=== PATIENT | male | born 1970 | race Caucasian/White ===

== ENCOUNTER 2016-11-08 15:10 | Emergency (ER) | payer BC, OTHER ==
--- NOTE | 2016-11-08 16:22 | RAD ---
INDICATION: Left ankle injury. History of old avulsion injury COMPARISON: July 15, 2016 TECHNIQUE: AP, lateral, and oblique views were obtained. FINDINGS: No acute bony changes are. Mild irregularities about the medial and lateral malleoli likely related to remote injuries. There is mild tibiotalar osteoarthritis. There are heel spurs. There is calcification of the Achilles tendon insertion There is no significant soft tissue swelling.. IMPRESSION: DEGENERATIVE AND OR POST TRAUMATIC CHANGES DESCRIBED ABOVE. ACHILLES TENDINOPATHY
--- NOTE | 2016-11-08 16:24 | RAD ---
INDICATION: Foot pain COMPARISON: None TECHNIQUE: AP, lateral, and oblique views were obtained. FINDINGS: There are no acute bony findings. There are heel spurs with findings of Achilles tendinopathy there are mild hammertoe deformities. IMPRESSION: DEGENERATIVE CHANGES DESCRIBED. ACHILLES TENDINOPATHY.
[2016-11-08 17:29] VITALS: BP 130/71
--- NOTE | 2016-11-10 06:09 | ED ---
Mel Day Edward, scribed for Bienvenido Dawkins MD on 11/08/16 at 1538 . Lower Extremity - HPI Summary HPI Summary: 46 y/o male presents to ED c/o sudden onset L heel pain s/p L heel injury around 1 hour ago. The pain is described as someone "hitting his heel with a bat " located at the L achilles. The pain radiates up the back of the calf when the pt bends his foot down. The pain is aggravated with movement of the foot. The pt was playing softball and was accelerating to picker tender a ground ball. PMHx calcified insertional achilles tendinitis. - History of Current Complaint Chief Complaint: EDExtremityLower Stated Complaint: LT ACHILLES TENDON PAIN Time Seen by Provider: 11/08/16 15:33 Hx Obtained From: Patient Mechanism Of Injury: Other - Injured while playing softball Onset of Pain: Immediate Onset/Duration: Still Present Severity Initially: Severe Severity Currently: Mild Pain Intensity: 2 Pain Scale Used: 0-10 Numeric Timing: Constant Aggravating Factor(s): Movement - of L foot - Allergies/Home Medications Allergies/Adverse Reactions: Allergies Allergy/AdvReac Type Severity Reaction Status Date / Time Amlodipine Allergy Rash Verified 11/08/16 15:23 PMH/Surg Hx/FS Hx/Imm Hx Previously Healthy: No Cardiovascular History: Reports: Hx Hypertension Musculoskeletal History: Reports: Other Musculoskeletal History - calcified insertional achilles tendinitis - Surgical History Surgery Procedure, Year, and Place: Neck infusion surgery Infectious Disease History: No Infectious Disease History: Denies: Traveled Outside the [place] in Last 30 Days - Social History Alcohol Use: Rare Hx Substance Use: No Substance Use Type: Reports: None Hx Tobacco Use: No Smoking Status (MU): Never Smoked Tobacco Review of Systems Constitutional: Negative Eyes: Negative ENT: Negative Cardiovascular: Negative Respiratory: Negative Gastrointestinal: Negative Genitourinary: Negative Positive: Arthralgia - L heel pain Skin: Negative Neurological: Negative Psychological: Normal All Other Systems Reviewed And Are Negative: Yes Physical Exam - Summary Physical Exam Summary: VITAL SIGNS: Reviewed. GENERAL: ~Patient is a well-developed and nourished male who is lying comfortable in the stretcher. ~Patient is not in any acute respiratory distress. HEAD AND FACE: No signs of trauma. ~No ecchymosis, hematomas or skull depressions. No sinus tenderness. EYES: PERRLA, EOMI x 2, No injected conjunctiva, no nystagmus. EARS: Hearing grossly intact. Ear canals and tympanic membranes are within normal limits. MOUTH: Oropharynx within normal limits. NECK: Supple, trachea is midline, no adenopathy, no JVD, no carotid bruit, no c- spine tenderness, neck with full ROM. CHEST: Symmetric, no tenderness at palpation LUNGS: Clear to auscultation bilaterally. No wheezing or crackles. CVS: Regular rate and rhythm, S1 and S2 present, no murmurs or gallops appreciated. ABDOMEN: Soft, non-tender. No signs of distention. No rebound no guarding, and no masses palpated. Bowel sounds are normal. EXTREMITIES: L foot - good pulses, decreased ROM, tenderness @ achilles tendon area. NEURO: Alert and oriented x 3. No acute neurological deficits. Speech is normal and follows commands. SKIN: Dry and warm Triage Information Reviewed: Yes Vital Signs On Initial Exam: Initial Vitals Temp Pulse Resp BP Pulse Ox 98.7 F 93 16 132/77 96 11/08/16 15:18 11/08/16 15:18 11/08/16 15:18 11/08/16 15:18 11/08/16 15:18 Vital Signs Reviewed: Yes - Tariq Coma Scale Coma Scale Total: 15 Procedures - Splinting Location: L foot and ankle Hand-Made Type: fiberglass Splint: posterior walking Pre-Proc Neuro Vasc Exam: normal Post-Proc Neuro Vasc Exam: normal Diagnostics - Vital Signs Vital Signs Temp Pulse Resp BP Pulse Ox 11/08/16 15:23 93 96 11/08/16 15:21 132/77 11/08/16 15:18 98.7 F 93 16 132/77 96 - Laboratory Lab Statement: Any lab studies that have been ordered have been reviewed, and results considered in the medical decision making process. - Radiology FOOT XR Xray Interpretation: Positive (See Comments) - DEGENERATIVE CHANGES DESCRIBED. ACHILLES TENDINOPATHY. Radiology Interpretation Completed By: Radiologist ANKLE XR Xray Interpretation: Positive (See Comments) - DEGENERATIVE AND OR POST TRAUMATIC CHANGES DESCRIBED ABOVE. ACHILLES TENDINOPATHY Radiology Interpretation Completed By: Radiologist Lower Extremity Course/Dx - Course Assessment/Plan: 46 y/o male presents to ED c/o sudden onset L heel pain s/p L heel injury around 1 hour ago. The pain is described as someone "hitting his heel with a bat" located at the L achilles. The pain radiates up the back of the calf when the pt bends his foot down. The pain is aggravated with movement of the foot. The pt was playing softball and was accelerating to picker tender a ground ball. PMHx calcified insertional achilles tendinitis. FOOT XR SHOWS DEGENERATIVE CHANGES DESCRIBED. ACHILLES TENDINOPATHY. ANKLE XR SHOWS DEGENERATIVE AND OR POST TRAUMATIC CHANGES DESCRIBED ABOVE. ACHILLES TENDINOPATHY. Talked to Dr. Engel to request either a CT or US to r/o Achilles tendon rupture. Dr. Engel reports we dont offer US for small parts on the weekend and that a CT would not be helpful to r/o an Achilles tendon rupture. I decided to place a posterior splint on the pts foot. The pt was given crutches and instructed to f/u with Dr. Pinto. Pt declined crutches, says he has a pair at home. The pt is hemodynamically stable and A&Ox3. - Diagnoses Provider Diagnoses: Ankle pain, Foot pain, rule out achilles tendon rupture Discharge - Discharge Plan Condition: Stable Disposition: HOME Patient Education Materials: Arthralgia (ED) Referrals: Fredrick Pinto MD [Medical Doctor] - 3 Days (PLEASE F/U IN 2-3 DAYS) The documentation as recorded by the Mel fry Edward accurately reflects the service I personally performed and the decisions made by me, Bienvenido Dawkins MD.
== END 2016-11-08 17:30 | disposition home or self-care (01) ==
LOC: ED 15:10
DX: M25.572 Pain in left ankle and joints of left foot (principal); M79.672 Pain in left foot; I10 Essential (primary) hypertension; M76.62 Achilles tendinitis, left leg
CPT/HCPCS: 99282

== ENCOUNTER 2016-11-13 06:07 | Day surgery (SDC) | payer BC ==
[~2016-11-13 06:07] MED LIST: Buffered Lidocaine 0.9% SYRIN* 5 ML/SYR SYRINGE INTRADERM ONE; Famotidine IV* 10 MG/ML 2 ML (20 mg) IV ONE; Morphine INJ* 2 MG/ML 1 ML CARPUJECT IV PRN; PROCHLORPERAZINE INJ 5 MG/ML 2 ML VIAL IV PRN; fentaNYL* 50 MCG/ML 2 ML VIAL (100 MCG VIAL) IV PRN; oxyCODONE/Acetamin 5/325 MG* TAB PO PRN
[2016-11-13] MEDS ORDERED: Buffered Lidocaine 0.9% SYRIN* 5 ML/SYR SYRINGE ONE (06:32)
[2016-11-13] MEDS ORDERED: Famotidine IV* 10 MG/ML 2 ML (20 mg) ONE (06:32)
[2016-11-13] MEDS ORDERED: ceFAZolin 2 GM PREMIX (*) 50 ML IVPB ONE (06:32)
[2016-11-13] MEDS ORDERED: ceFAZolin 1 GM ADVAN(*) 1 GM ADDV.VIAL IVPB ONE ×2 (06:32→10:48)
[2016-11-13] MEDS ORDERED: KETAMINE HCL* 50 MG/ML 10 ML VIAL ONE (07:06)
[2016-11-13] MEDS ORDERED: Atracurium* 10 MG/ML 10 ML VIAL ONE (07:06)
[2016-11-13] MEDS ORDERED: fentaNYL* 50 MCG/ML 5 ML VIAL (250 MCG VIAL) ONE (07:06)
[2016-11-13] MEDS ORDERED: Midazolam* 1 MG/ML 10 ML VIAL (10 MG) ONE (07:06)
[2016-11-13] MEDS ORDERED: Ondansetron INJ* 2 MG/ML VIAL ONE (08:39)
[2016-11-13] MEDS ORDERED: Bupivacaine 0.25% SDV* 30 ML ONE (08:39)
[2016-11-13] MEDS ORDERED: Lidocaine 2% PF * 5 ML VIAL ONE (08:39)
[2016-11-13] MEDS ORDERED: Dexamethasone IV* 4 MG/ML 1 ML (4 MG) ONE (08:39)
[2016-11-13] MEDS ORDERED: Propofol* 10 MG/ML 20 ML BTL IV PUSH ONE (08:39)
[2016-11-13] MEDS ORDERED: Succinylcholine* 20 MG/ML 10 ML VIAL ONE (08:40)
[2016-11-13] MEDS ORDERED: Labetalol IV* 5 MG/ML 20 ML VIAL ONE (09:59)
[2016-11-13] MEDS ORDERED: oxyCODONE/Acetamin 5/325 MG* TAB ONE (11:12)
[2016-11-13 11:15] VITALS: BP 129/80
--- NOTE | 2016-11-14 02:02 | OP ---
DATE OF OPERATION: 11/13/16 [facility] DATE OF : 68 SURGEON: Ubaldo Upton MD. PARADICHLOROBENZENE MACHINE OPERATOR: KB Leonard. ANESTHESIOLOGIST: Mook Deal MD ANESTHESIA: General endotracheal anesthesia with a regional nerve block. PRE-OP DIAGNOSES: 1. Left Achilles tendon rupture. 2. Left insertional Achilles tendinopathy with an insertional spur and Kulwinder' s lesion. 3. Left Achilles contracture. POST-OP DIAGNOSES: 1. Left Achilles tendon rupture. 2. Left insertional Achilles tendinopathy with an insertional spur and Kulwinder' s lesion. 3. Left Achilles contracture. OPERATIVE PROCEDURE: 1. Left Achilles tendon repair. 2. Left calcaneal exostectomy with removal of Kulwinder's lesion. 3. Left flexor hallucis longus tendon transfer. 4. Left gastrocnemius recession (Royal procedure). IMPLANTS: 1. Arthrex SpeedBridge for Achilles repair. 2. Arthrex 8mm Bio-Tenodesis screw for the FHL tendon transfer. ESTIMATED BLOOD LOSS: Minimal. TOURNIQUET TIME: Less then 2 hours at 275 mmHg. SPECIMENS: None. COMPLICATIONS: None. STATUS: Stable from the operating room to the recovery room and then home. 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 This has been symptomatic for 4 to 5 years. This past weekend in a softball game, he was running to get a ball and ruptured his left Achilles off its insertion on the calcaneus. This was confirmed on physical exam as well as with MRI. Given that this was an insertional Achilles rupture, surgery was recommended to him after discussing all of his options including nonoperative management. The nature and the risks of surgery were reviewed in careful detail in the office as well as in the preoperative holding area. Our discussions regarding the risk of surgery included, but were not limited to infection, wound problems, nerve injury, neuroma, RSD, persistent symptoms, weakness, blood clots, re-rupture, persistent pain, need for further surgery and even the remote chance of a catastrophic complication including loss of limb. DESCRIPTION OF PROCEDURE: The patient was seen in the preoperative holding area and informed consent was obtained. The appropriate extremity was marked. The patient was then brought to the operating room and anesthesia was induced. All bony prominences were padded with great care. A well-padded thigh tourniquet was applied. DVT prophylaxis in the form of a compression boot was put on the nonsurgical extremity. He was placed in the prone position and again all bony prominences were carefully padded. A pre-scrub with a chlorhexidine based scrub was used and then a ChloraPrep scrub was performed under sterile conditions and the patient was draped in the standard sterile fashion. Surgical safety pause was then conducted in which we confirmed the appropriate patient, extremity, planned procedure, availability of equipment, indication, and administration of prophylactic antibiotics. We began with Esmarch exsanguination and inflated the tourniquet to 275 mmHg. We made an approximately 8 cm incision overlying the posterior aspect of the Achilles. Skin edges were carefully protected throughout the procedure. The incision was made slightly medial to midline to avoid sural nerve. We carried the dissection down through the soft tissues and carefully exposed the paratenon layer for later repair. We then sharply came through this to expose the Achilles tendon including its insertion on to the calcaneus. There was a complete rupture of the Achilles tendon at the insertion as well as large insertional bone spurs. We inspected the Achilles tendon proximally and then used a malleable retractor passed deep to the paratenon to mobilize the proximal stump. The distal aspect of the Achilles tendon was debrided. Calcification as well as degenerative tissue was removed. The distal end of his Achilles was quite degenerative as expected given his long history of Achilles tendinopathy. Because of this, the decision was made to perform a flexor hallucis longus tendon transfer. The calcaneal insertion site was then exposed, some residual tendon insertion was mobilized medially and laterally and used later to augment the repair. This exposed the large bone spurs as well as the Kulwinder's lesion. At this point, we utilized a combination of a sagittal saw, rongeur, and scalpel to remove the Kulwinder's lesion as well as the large bone spurs. Fluoroscopic imaging was used to demonstrate adequate removal of the calcaneal bony prominences. We carefully felt the site through the skin to ensure that there were no prominences medially or laterally. We then proceeded to the flexor hallucis longus tendon transfer. The posteromedial neurovascular bundle was carefully protected throughout this portion of the procedure. We dissected into the deep posterior compartment in order to expose the FHL muscle belly. The FHL was then confirmed by ranging the hallux. We then traced the FHL tendon distally around the posteromedial aspect of the ankle. A Hitesh was placed around the FHL tendon and then the tendon was transected as distally as possible with the ankle and hallux plantar flexed. At this point, the tendon was tagged using a FiberLoop suture. The tendon was sized to 7.5 mm. We then passed a Beath pin through the calcaneus, confirming the position fluoroscopically. This was overdrilled with an 8 mm drill and then passed the tendon into the calcaneus, pulled tension on the FHL tendon with the ankle plantarflexed to match the contralateral extremity, which had been assessed prior prepping and draping. We then placed an 8-mm Bio- Tenodesis screw. This had excellent purchase and held the tendon transfer appropriately tensioned. We then turned our attention back to the Achilles. There was quite a bit of tension on the Achilles when bringing it down to its calcaneal insertion, so the decision was made to do a gastrocnemius recession. A 4-cm incision was then made over the medial calf. I dissected down to the crural fascia and this was incised sharply. The gastrocnemius fascia was found at the level just distal to the musculotendinous junction. This was dissected out and the sural nerve was protected throughout. The gastrocnemius fascia was then sharply incised with the scalpel. Afterwards tension pulled on the distal Achilles, we were able to gain about 2 cm more of length. This allowed us to repair the Achilles down to the calcaneal insertion. Prior to starting the Achilles repair, the deep wound was thoroughly irrigated. The sites for the SpeedBridge were planned out. We then drilled all 4 holes for the SpeedBridge and these were tapped. The proximal 2 anchors were placed and the FiberTape sutures were passed through the substance of the Achilles both medially and laterally. We placed a stopping stitch distal to each of these with a #1 Vicryl, so that the FiberTape were not pulled through the tendon substance. The Achilles was brought down to the calcaneus insertion and anchors were then placed into its distal 2 SpeedBridge holes with appropriate tension. This brought 2 vertical ends of tape as well as 2 crisscrossed limbs of tape to give a good repair of the Achilles with a broad attachment on to the calcaneus. This was a nice repair and the Achilles held tight with an intact London's test. The repair was then augmented by utilizing #1 Vicryl suture, so the remnant fibers from the calcaneus tuberosity into the repaired Achilles. This helped to reinforce the repair. At this point, the tourniquet was deflated. There was no significant bleeding encountered. We closed meticulously using 2-0 Vicryl for the paratenon layer, 3-0 Monocryl for the deep dermal layer, and 3-0 nylon for the skin. At the incision for the Royal , 3-0 Monocryl and 3-0 nylon were also used. A sterile dressing was then applied and we placed a splint with the ankle in resting equinus. The patient was then turned into the supine position and awakened from anesthesia. There were no complications. All needle and sponge counts were correct at the end of the case. ATTESTATION: I attest that I was present, scrubbed, and performed the critical portions of the procedure myself. I also attest that Jayne Tanner's assistance was necessary. POSTOPERATIVE PLAN: Pino will remain nonweightbearing for an anticipated duration of 6 weeks. He will follow up in 2 weeks, at which time I will likely remove his sutures and apply Steri-Strips. At that point, I will also transition him into a tall Aircast boot with wedges and over the next month, we will slowly remove the wedges while he is nonweightbearing. While in the boot, we will start gentle active range of motion to neutral only. [id number]/[facility] #: [id number] LEO
--- NOTE | 2016-11-14 14:23 | RAD ---
INDICATION: Left ankle Achilles tendon tear COMPARISONS: MRI dated November 12, 2016 TECHNIQUE: Fluoroscopy was provided for a surgical procedure. Total fluoroscopy time is: 3.9 seconds FINDINGS: Spot images are submitted of the calcaneus. IMPRESSION: FLUOROSCOPY WAS PROVIDED FOR A SURGICAL PROCEDURE CPT II Codes: 6045F
== END 2016-11-13 11:54 | disposition home or self-care (01) ==
LOC: OR 06:07
PROVIDERS: ATTEND Orthopaedic Surgery
DX: S86.012A Strain of left Achilles tendon, initial encounter (principal); M77.32 Calcaneal spur, left foot; M70.872 Other soft tissue disorders related to use, overuse and pressure, left ankle and foot; M67.02 Short Achilles tendon (acquired), left ankle; X50.0XXA Overexertion from strenuous movement or load, initial encounter; Y93.64 Activity, baseball; Y92.320 Baseball field as the place of occurrence of the external cause; E66.01 Morbid (severe) obesity due to excess calories; I10 Essential (primary) hypertension; R00.2 Palpitations; G47.33 Obstructive sleep apnea (adult) (pediatric)
CPT/HCPCS: 76000; A9270-GY; C1713; J0330; J0690; J1100; J2250; J2405; J2704; J3010

== ENCOUNTER → 2018-08-29 13:54 | Emergency (ER) | payer BC ==
[~2018-08-29 13:54] MED LIST changes: -Buffered Lidocaine 0.9% SYRIN* 5 ML/SYR SYRINGE INTRADERM ONE; -Famotidine IV* 10 MG/ML 2 ML (20 mg) IV ONE; +Fluorescein Sodium TOPICAL* 1 MG TEST STRIP OPHTHALMIC ONE; -Morphine INJ* 2 MG/ML 1 ML CARPUJECT IV PRN; -PROCHLORPERAZINE INJ 5 MG/ML 2 ML VIAL IV PRN; +Tetan/Diph/Pertus SYR(Tdap)* 0.5 ML SYR(BOOSTRIX) use SYR IM ONE; +Tetracaine 0.5% OPTH.SOL 4 ML* 1 DROP BTL BOTH EYES SCH; +Tetracaine 0.5% OPTH.SOL 4 ML* 1 DROP BTL ONE; -fentaNYL* 50 MCG/ML 2 ML VIAL (100 MCG VIAL) IV PRN; -oxyCODONE/Acetamin 5/325 MG* TAB PO PRN
[2018-08-29 17:11] VITALS: BP 133/88
--- NOTE | 2018-08-29 17:23 | ED ---
Throat Pain/Nasal Congestion - HPI Summary HPI Summary: Pt. is a 47 y.o male who presents to the ER for left eye pain. Pt. states he was mowing his grass when a tree branch struck his left eye. Pt. notes pain and redness but denies change in vision. Sxs mild in severity. No modifying factors. Unsure of last tetanus. - History of Current Complaint Chief Complaint: EDEyeProblem Time Seen by Provider: 08/29/18 15:12 Hx Obtained From: Patient - Allergies/Home Medications Allergies/Adverse Reactions: Allergies Allergy/AdvReac Type Severity Reaction Status Date / Time amlodipine AdvReac Flushing Verified 08/29/18 13:59 lisinopril AdvReac Flushing Verified 08/29/18 13:59 Home Medications: Home Medications Naproxen Sodium 440 mg PO DAILY 08/29/18 [History Confirmed 08/29/18] PMH/Surg Hx/FS Hx/Imm Hx Previously Healthy: Yes Cardiovascular History: Reports: Hx Hypertension Denies: Hx Pacemaker/ICD Respiratory History: Reports: Hx Sleep Apnea - HX OF FOR 10 YRS Musculoskeletal History: Reports: Hx Arthritis - RIGHT HIP AND KNEE, GENERALIZED , Hx Tendonitis - CALCIFIED LEFT ACHILLES TENDINITIS, Other Musculoskeletal History - [facility] 04/17, SEE NOTE BELOW Sensory History: Denies: Hx Cataracts, Hx Contacts or Glasses, Hx Glaucoma, Hx Hearing Aid Opthamlomology History: Denies: Hx Cataracts, Hx Contacts or Glasses, Hx Glaucoma Neurological History: Reports: Hx Migraine - A CHILD, NONE IN RECENT YEARS, Other Neuro Impairments/Disorders - 06/17 C 4-5, 5-6 FUSION WITH RIGHT ARM NEURO IMPAIRMENTS Psychiatric History: Denies: Hx Panic Disorder - Surgical History Surgery Procedure, Year, and Place: VASECTOMY- 1996- [facility]. FUSION C5-C6- 04/15 - [facility] [place] Hx Anesthesia Reactions: No - Immunization History Immunizations Up to Date: Yes Infectious Disease History: No Infectious Disease History: Denies: Traveled Outside the [place] in Last 30 Days - Family History Known Family History: Positive: Non-Contributory - Social History Occupation: Employed Full-time Lives: With Family Alcohol Use: Occasionally Alcohol Amount: A FEW X YR Hx Substance Use: No Substance Use Type: Reports: None Hx Tobacco Use: No Smoking Status (MU): Never Smoked Tobacco Have You Smoked in the Last Year: No Review of Systems Positive: Photophobia, Erythema Skin: Negative Neurological: Negative All Other Systems Reviewed And Are Negative: Yes Physical Exam Triage Information Reviewed: Yes Vital Signs On Initial Exam: Initial Vitals Temp Pulse Resp BP Pulse Ox 98.7 F 83 18 133/103 97 08/29/18 13:57 08/29/18 13:57 08/29/18 13:57 08/29/18 13:57 08/29/18 13:57 Vital Signs Reviewed: Yes Appearance: Positive: Well-Appearing - Pt. lying in bed with sunglasses on. In NAD. Skin: Positive: Warm, Dry Head/Face: Positive: Normal Head/Face Inspection Eyes: Positive: Normal, EOMI - without pain, JANELLE, Other: - Right eye unremarkable. Left eye is mildly injected. Anterior chamber is clear. Neck: Positive: Supple Neurological: Positive: Normal, CN Intact II-III Psychiatric: Positive: Affect/Mood Appropriate Procedures - Procedure Summary Procedure Summary: Left eye anesthetized with tetracaine and stained with fluorescein. Eye examined under wood lamp. Small area of uptake at 7 o clock. Negative leonard sign. Eyelid everted and no FB noted. Diagnostics - Vital Signs Vital Signs Temp Pulse Resp BP Pulse Ox 08/29/18 16:55 98.2 F 89 18 133/88 98 08/29/18 13:57 98.7 F 83 18 133/103 97 - Laboratory Lab Statement: Any lab studies that have been ordered have been reviewed, and results considered in the medical decision making process. EENT Course/Dx - Course Course Of Treatment: Patient presenting with a corneal abrasion to left eye. Visual acuity normal as documented. Tetanus was updated. We'll treat patient prophylactically with Cipro eye drops. Advised follow-up with ophthalmology and 1-3 days for recheck. We'll return the ER if symptoms change or worsen. Patient understands and agrees with plan. - Differential Diagnoses Differential Diagnoses: Allergic Rhinitis, Corneal Abrasion, Penetrating Injury - Diagnoses Provider Diagnoses: Corneal abrasion Discharge - Sign-Out/Discharge Documenting (check all that apply): Patient Departure Patient Received Moderate/Deep Sedation with Procedure: No - Discharge Plan Condition: Good Disposition: HOME Prescriptions: Ciprofloxacin 0.3% OPTH.ADI* [Cipro 0.3% Opth*] 2 drop LEFT EYE Q4H 10 Days #1 btl Ciprofloxacin 0.3% OPTH.ADI* [Cipro 0.3% Opth*] 2 drop LEFT EYE Q4H 10 Days #1 btl Patient Education Materials: Corneal Abrasion (ED) Referrals: Quique Gilliam MD [Primary Care Provider] - Shlomo Yoon MD [Medical Doctor] - Additional Instructions: Call Dr. Yoon's office tomorrow morning to schedule an appointment in 2-3 days Use drops as directed Tylenol or Motrin for pain as directed Return to ER if symptoms change or worsen - Billing Disposition and Condition Condition: GOOD Disposition: Home
== END | disposition home or self-care (01) ==
LOC: ED 13:54
DX: S05.02XA Injury of conjunctiva and corneal abrasion without foreign body, left eye, initial encounter (principal); W22.8XXA Striking against or struck by other objects, initial encounter; Y93.H2 Activity, gardening and landscaping; Y92.007 Garden or yard of unspecified non-institutional (private) residence as the place of occurrence of the external cause; I10 Essential (primary) hypertension; Z88.8 Allergy status to other drugs, medicaments and biological substances; Z23 Encounter for immunization
CPT/HCPCS: 90471; 90715; 99282; A9270-GY

== ENCOUNTER 2018-12-14 08:17 | Inpatient (IN) | payer BC, OTHER ==
--- NOTE | 2018-12-03 11:35 | HP ---
HISTORY AND PHYSICAL: DATE OF ADMISSION/SURGERY: 12/14/18 DATE OF OFFICE VISIT: 12/03/18 SURGEON: Gerri Kaur MD.* (DICTATED BY KB OLIVEIRA) PROCEDURE: Right total hip arthroplasty. CHIEF COMPLAINT: Right hip pain. HISTORY OF PRESENT ILLNESS: Mr. Ramon is a 48-year-old gentleman with end- stage osteoarthritis of the right hip. He has failed conservative treatment and elected to proceed with a right total hip arthroplasty. PAST MEDICAL HISTORY: 1. Sleep apnea. 2. Hypertension. 3. Mobitz type 1 AV block. PAST SURGICAL HISTORY: 1. ACDF. 2. Left Achilles repair. CURRENT MEDICATIONS: 1. Irbesartan 75 mg daily. 2. Ibuprofen as needed. ALLERGIES: AMLODIPINE and LISINOPRIL. FAMILY HISTORY: Cancer. SOCIAL HISTORY: This is a 48-year-old gentleman. He lives with his . He does not smoke or use drugs. He uses alcohol rarely. REVIEW OF SYSTEMS: A complete 14-point review of systems was reviewed with the patient and is positive for palpitation. He denies history of DVT, PE, hepatitis, HIV, or anesthesia problems. PHYSICAL EXAMINATION GENERAL: He is well developed, well nourished, in no acute distress. VITAL SIGNS: He stands 74 inches tall and weighs 337 pounds. His blood pressure is 142/98, heart rate is 76. HEENT: Normocephalic, atraumatic. NECK: Supple. No palpable lymph nodes. PULMONARY: Lungs are clear to auscultation bilaterally. CARDIO: Regular rate and rhythm. Strong S1, S2. ABDOMEN: Soft, nontender, nondistended. NEUROLOGICAL: He is alert and oriented x3. MUSCULOSKELETAL: Right Lower Extremity: The skin is intact. There are no open wounds or abrasions. He walks with an antalgic-type gait favoring his right hip. He has 70 degrees of hip flexion, he lacks 10 degrees from neutral, and 0 degrees of internal rotation. He has 30 degrees of external rotation. All reproduce groin pain. He is able to dorsiflex and plantarflex. He has 2+ dorsalis pedis pulse and intact sensation. ASSESSMENT AND PLAN: Mr. Ramon is a 48-year-old gentleman with end-stage osteoarthritis of the right hip. He has failed conservative treatment and elected to proceed with a right total hip arthroplasty. The surgery is scheduled for 12/14/[address] Kaur. The risks and benefits of the surgery were discussed with the patient today and all of his questions were answered. He will follow up with Dr. Kaur in 2 weeks after the surgery. KB OLIVEIRA [id number]/[facility] #: [id number] LEO
[~2018-12-14 08:17] MED LIST changes: +Acetaminophen IV 1GM/100ML * 1,000 MG/100 ML VIAL IVPB ONE; +Dexamethasone IV* 4 MG/ML 1 ML (4 MG) IV SLOW PU ONE; +Famotidine IV* 10 MG/ML 2 ML (20 mg) IV ONE; -Fluorescein Sodium TOPICAL* 1 MG TEST STRIP OPHTHALMIC ONE; +Gabapentin CAP(*) 300 MG PO ONE; +Lactated Ringers 1000 ML Bag* 1,000 ML IV SCH; -Tetan/Diph/Pertus SYR(Tdap)* 0.5 ML SYR(BOOSTRIX) use SYR IM ONE; -Tetracaine 0.5% OPTH.SOL 4 ML* 1 DROP BTL BOTH EYES SCH; -Tetracaine 0.5% OPTH.SOL 4 ML* 1 DROP BTL ONE; +Tranexamic Acid 1,000 MG in NS 0.9% 50 ML* (outpatient use) IV SCH; +celeCOXIB CAP* 200 MG PO ONE
[2018-12-14] MEDS ORDERED: Dexamethasone IV* 4 MG/ML 1 ML (4 MG) ONE (08:27)
[2018-12-14] MEDS ORDERED: Gabapentin CAP(*) 300 MG ONE (08:27)
[2018-12-14] MEDS ORDERED: Acetaminophen IV 1GM/100ML * 100 ML ONE (08:28)
[2018-12-14] MEDS ORDERED: ceFAZolin 2 GM in NS PREMIX(*) 2 GM/100 ML BAG IVPB ONE (08:28)
[2018-12-14] MEDS ORDERED: Famotidine IV* 10 MG/ML 2 ML (20 mg) ONE (08:28)
[2018-12-14] MEDS ORDERED: celeCOXIB CAP* 200 MG ONE (08:28)
[2018-12-14] MEDS: Buffered Lidocaine 1% SYRIN* 1 ML/SYRINGE INTRADERM ONE ×2 (09:18→15:04)
[2018-12-14] MEDS ORDERED: Propofol* 10 MG/ML 20 ML BTL ONE (09:34)
[2018-12-14] MEDS ORDERED: Midazolam* 1 MG/ML 5 ML VIAL (5 MG) ONE ×2 (09:34→10:54)
[2018-12-14] MEDS ORDERED: Ondansetron INJ* 2 MG/ML VIAL ONE (09:34)
[2018-12-14] MEDS ORDERED: KETAMINE HCL* 50 MG/ML 10 ML VIAL ONE (09:34)
[2018-12-14] MEDS ORDERED: fentaNYL* 50 MCG/ML 2 ML VIAL (100 MCG VIAL) ONE ×3 (09:35→14:20)
[2018-12-14] MEDS ORDERED: Bupivacaine 0.5% SDV PF* 30ML VIAL ONE (09:35)
[2018-12-14] MEDS ORDERED: Ropivacaine (OR use only) 2 MG/ML 10 ML ONE (09:43)
[2018-12-14] MEDS ORDERED: ROPIVACAINE 5 MG/ML 30 ML BTL (0.5%) ONE ×2 (09:43→09:51)
[2018-12-14] MEDS ORDERED: HYDROmorphone INJ1* 1 MG/ML SYRINGE IV PRN (11:42)
[2018-12-14] MEDS ORDERED: fentaNYL* 50 MCG/ML 2 ML VIAL (100 MCG VIAL) IV PRN (11:42)
[2018-12-14] MEDS ORDERED: Naloxone* 0.4 MG/ML 1 ML VIAL IV PRN (11:42)
[2018-12-14] MEDS ORDERED: DiMENhydriNATE IV* 50 MG/ML VIAL IV PUSH PRN (11:42)
[2018-12-14] MEDS ORDERED: Ondansetron INJ* 2 MG/ML VIAL IV PRN ×2 (11:42→14:16)
[2018-12-14] MEDS ORDERED: Metoprolol Tartrate IV* 1 MG/ML 5 ML VIAL ONE (12:59)
[2018-12-14] MEDS ORDERED: Ondansetron ODT TAB* 4 MG PO PRN (14:16)
[2018-12-14] MEDS ORDERED: Magnesium Hydroxide LIQ* 30 ML UDC PO PRN (14:16)
[2018-12-14] MEDS ORDERED: oxyCODONE TAB* 5 MG TAB PO PRN (14:16)
[2018-12-14] MEDS ORDERED: oxyCODONE/Acetamin 5/325 MG* TAB PO PRN (14:16)
[2018-12-14] MEDS ORDERED: Acetaminophen TAB* 325 MG PO PRN (14:16)
[2018-12-14] MEDS ORDERED: Cyclobenzaprine TAB* 10 MG PO PRN (14:16)
[2018-12-14] MEDS ORDERED: Morphine INJ* 2 MG/ML 1 ML SYRINGE (TWO MG - NEW SYRINGE VERSION) IV PRN (14:16)
[2018-12-14] MEDS ORDERED: diPHENhydraMINE IV* 50 MG/ML 1 ml VIAL (BENADRYL) IV PRN (14:16)
[2018-12-14] MEDS ORDERED: diPHENhydraMINE PO* 25 MG PO PRN (14:16)
--- NOTE | 2018-12-14 16:18 | PN ---
Progress Note - Progress Note Date of Service: 12/14/18 Note: resting comfortably in recovery; pain well controlled; able to dorsi flex/ plantar flex, 2+ DP pulse, intact sensation
--- NOTE | 2018-12-14 17:06 | OP ---
Operative Report - Blank - Operative Report Date of Operation: 12/14/18 Note: SARATH SHER 1970 Date Of Surgery: 12/14/18 Gerri Kaur MD Regional Education Coordinator: Radha QUILES did help throughout the procedure with preparation of the hip, wound retraction, manipulation of the hip, and wound closure. Anesthesiologist: Radha Bashir MD Anesthesia Type: Spinal Preoperative Diagnosis: Right severe degenerative osteoarthritis of the hip with morbid obesity Postoperative Diagnosis: As above Procedure Performed: Right Total Hip Arthroplasty with modifier for added operative time/complexity due to morbid obesity Complications: None Specimen: Femoral head and acetabular reamings sent to pathology. Hardware used: This is uncemented Silt total hip arthroplasty hardware for the femur a size 6 accolade II with 127 neck angle femoral component, for the acetabulum a size 56F trident II tritanium cluster hole shell, for the insert a size 40 F trident X3 polyethylene insert, and for the femoral head a size 40 + 0 biolox ceramic V40 femoral head. Brief history/Indication: SARATH SHER was known in clinic and had a history of severe right hip pain. He failed conservative treatment with anti- inflammatories, pain pills, intra-articular injections and physical therapy. He elected to undergo right total hip arthroplasty due to continued pain and decreased quality of life. Radiographs showed severe end stage osteoarthritis of the hip with bone on bone contact. Informed consent was obtained from the patient. He understood the risks of surgery included but were not limited to: bleeding, infection, damage to nearby structures, intraoperative fracture, nerve palsy, failure of the hardware, early loosening, stiffness or loss of motion, dislocation, leg length discrepancy, anesthesia complications, stroke, heart attack, blood clot and . He wished to proceed. Intra-Operative findings: Intraoperatively the patient was noted to have severe loss of cartilage of the acetabulum and femoral head. Description of the Procedure: SARATH SHER was identified in the preanesthesia unit. His right hip was marked as the correct operative side. Informed consent was signed and placed in the chart. The patient was taken to the operating room and placed under anesthesia without complication. A lim catheter was placed. The patient was placed on the peg board with all bony prominences well padded. The right lower extremity was prepped and draped in the usual sterile fashion. Preoperative time-out was made to correctly identify the patient, side and site. Appropriate intraoperative antibiotics were given within one hour of incision. A standard posterior incision was made and carried sharply down to the lateral fascia. A new 10 blade was used to make an incision in the fascia in line with the skin incision. A charnley retractor was placed. The piriformis and conjoined tendons were identified and elevated off the posterolateral femur using electrocautery. These were tagged with number 5 Ethibond. Next electrocautery was used to make a posterolateral capsular flap and this was tagged with number 5 Ethibonds. The hip was carefully dislocated. Lesser trochanter to the center of the femoral head was measured at 62 mm. The oscillating saw was used to make the femoral neck cut. The femoral head was carefully removed. The femur was retracted anteriorly and the acetabular retractors were placed. Long-handled knife was used to sharply remove any remaining labrum from the acetabular rim. The acetabulum was sequentially reamed up to a size 56. A bleeding subchondral bone bed was obtained. A trial liner was placed and had excellent fit and stability. A 56 F cup was placed and had excellent stability with appropriate anteversion and abduction angle. A size 40F polyethylene liner was impacted into the acetabular shell. The liner was checked for stability and was stable. Next attention was turned to preparation of the femoral canal. A canal finder was used to enter the proximal femur. The femoral canal was sequentially broached up to a size 6 femoral broach trial. A trial neck and 40 +0 trial femoral head was chosen. Lesser trochanter to center of the femoral head measurement was satisfactory. The hip was reduced and taken through a range of motion. The hip was stable in all positions with good soft tissue tension and appropriate leg lengths. The hip was dislocated and all trials were removed. The final implant chosen was a accolade II size 6. This stem was impacted into the femoral canal without difficulty. The stem was stable with appropriate anteversion. The femoral head chosen was a 40 + 0 ceramic head. The head was impacted onto the femoral neck without difficulty. The final lesser trochanter to center of the femoral head measurement was satisfactory. The hip was reduced and taken through a range of motion. The hip was stable in all positions with good soft tissue tension and appropriate leg lengths. The hip was copiously irrigated with sterile saline. The previously tagged capsule and tendons were repaired to the posterolateral femur through two trochanteric drill holes. The lateral fascia layer was closed using number 1 vicryls. The rest of the incision was closed in a layered fashion using 0 and 2-0 vicryls. The skin was closed using 3-0 monocryl suture and Dermabond. Sterile adaptic, 4x4s and paper tape was used to cover the incision. The patients anesthesia was reversed without difficulty. He was taken to the PACU in stable condition. Intended weight-bearing will be as tolerated with posterior hip precautions.
[2018-12-14] MEDS: oxyCODONE/Acetamin 5/325 MG* TAB PO PRN ×2 (17:07→22:24)
[2018-12-14] MEDS: Lactated Ringers 1000 ML Bag* 1,000 ML IV SCH (17:24)
--- NOTE | 2018-12-14 18:09 | CONS ---
CONSULTATION REPORT: DATE OF CONSULT: 12/14/18 REQUESTING PROVIDER: Dr. Kaur. REASON FOR CONSULT: General co-medical management. HISTORY OF PRESENT ILLNESS: This is a 48-year-old male with a past medical history that is significa nt for osteoarthritis, sleep apnea, hypertension, who was admitted on 12/14/18, status post a right t otal hip replacement after failing conservative outpatient therapy. The patient was seen in the PACU , was awake and alert, able to move all toes. Pain to right hip was 2/10, which was tolerable. Kade ed any chest pain or shortness of breath. Hospital Medicine was consulted for general co- medical ma brady. PAST MEDICAL HISTORY: Ascending aorta ectasia, colon polyps, osteoarthritis, sleep apnea, hypertensi on, and Mobitz type 1 AV block. PAST SURGICAL HISTORY: ACDF, left Achilles tendon repair, vasectomy and reversal. ALLERGIES: AMLODIPINE and LISINOPRIL. FAMILY HISTORY: Significant for unknown cancer. SOCIAL HISTORY: Denies any tobacco or recreational substance use. Drinks rarely. Lives with his wif e, has 2 children. REVIEW OF SYSTEMS: An 11-point system review was performed, which was positive for right hip pain. Negative for any chest pain, shortness of breath, nausea, vomiting. PHYSICAL EXAM: Vital Signs: 97.3 Fahrenheit, 75 pulse, 18 resps, 96% oxygen on room air, and 126/78 blood pressure. General: This is an obese gentleman seen resting in the stretcher, in no acute dis tress. Eyes: Conjunctivae pink and moist. EOMs intact. PERRLA. ENT: Mucous membranes moist. Or opharynx clear. Neck is supple. Cardiac: S1, S2. Heart rate regular. No murmurs, gallops, or rubs appreciated. Respiratory: Lung sounds distant due to body habitus, though clear throughout bilater ally on room air. Abdomen: Soft, nontender. Positive bowel sounds x4. : Fitzgerald draining medium clear yellow urine. Musculoskeletal: Able to perform bilateral ankle pumps and move all toes, slight knee bend. Abductor wedge in place between legs. No clubbing or cyanosis appreciated. Skin: Dressi ng to the right lateral hip is clean, dry, and intact. No other open areas appreciated. Neuro: Sen sation intact to light touch throughout. No focal deficits appreciated. Psych: Alert and oriented x4. Thought content organized. DIAGNOSTIC STUDIES/LAB DATA: No lab data during this admission. Right hip and pelvis x-ray showed immediate postoperative changes related to a right total hip arthro plasty. IMPRESSION: My impression is that this is a 48-year-old male with a past medical history significant for osteoarthritis, sleep apnea, and hypertension, who was admitted on 12/14/18 status post a right total hip replacement after failing conservative outpatient treatment. Hospitalists are consulting f or general co- medical management. PLAN: 1. Right total hip replacement. PT and OT, pain and bowel management as per Ortho. Hip precautions . Fitzgerald to be removed in a.m. Saline lock when tolerating p.o. Spoke with the patient briefly abou t pain management strategies. 2. Hypertension. Due to blood pressures in the PACU of low 100s/50s, holding irbesartan for now, th ough may resume upon discharge. 3. Sleep apnea. May use home CPAP machine. To do pulse oximeter monitoring in the overnight. 4. DVT prophylaxis: SCDs and apixaban as per Ortho. 5. Code status is full code. 6. Disposition: Admit inpatient. Condition is fair. Thank you for allowing us to participate in the care of this patient. We will follow during this adm ission. [id number]/[facility] #: [id number]
[2018-12-14] MEDS: ceFAZolin 1 GM ADVAN(*) 1 GM in NS 0.9% 50 ML* 50 ML IVPB SCH (20:15)
[2018-12-14] MEDS: Docusate CAP* 100 MG PO SCH (20:49)
[2018-12-14] MEDS: Magnesium Hydroxide LIQ* 30 ML UDC PO SCH (20:50)
[2018-12-15] MEDS: ceFAZolin 1 GM ADVAN(*) 1 GM in NS 0.9% 50 ML* 50 ML IVPB SCH ×2 (02:45→11:01)
[2018-12-15] MEDS: Lactated Ringers 1000 ML Bag* 1,000 ML IV SCH (02:47)
[2018-12-15] MEDS: oxyCODONE/Acetamin 5/325 MG* TAB PO PRN ×4 (02:48→16:29)
[2018-12-15 06:45] LABS: Hematocrit 36 % (42-52); Hemoglobin 12.4 g/dL (14.0-18.0); Mean Platelet Volume 7.8 fL (7.4-10.4); Platelet Count 243 10^3/uL (150-450)
[2018-12-15 06:56] LABS: Calcium 8.8 mg/dL (8.6-10.3); EGFR African American 133.9 (>60); EGFR Non-African American 110.7 (>60)
[2018-12-15] MEDS: Magnesium Hydroxide LIQ* 30 ML UDC PO SCH (08:24)
[2018-12-15] MEDS: Docusate CAP* 100 MG PO SCH (08:24)
[2018-12-15] MEDS ORDERED: Apixaban* 2.5 MG TAB PO SCH (09:00)
[2018-12-15] MEDS ORDERED: Vitamin THERAPEUTIC TAB PO SCH (09:00)
[2018-12-15 16:26] VITALS: BP 129/72
[2018-12-16] MEDS ORDERED: Bisacodyl SUPP* 10 MG SUPP PR PRN (14:17)
--- NOTE | 2018-12-16 15:09 | DS ---
Orthopedic Discharge Summary - Discharge Summary Date of Admission:12/14/18 Date of Discharge: 12/15/18 Date of Surgery: 12/14/18 Attending Orthopedic Provider: Dr Kaur Pre-operative Diagnosis: Right hip osteoarthritis Operative Procedure: right total hip replacement Disposition of Patient: home Condition of Patient: stable History: SARATH SHER is a 48 year old M with years of increasingly severe right hip pain. Patient has failed conservative management and has elected to undergo a right total hip replacement Hospital Course: SARATH was admitted to [facility] on 12/14/18. Patient underwent a right total hip replacement without complication followed by a brief recovery in PACU and transfer to the Short Stay Surgical Unit in stable condition. Our hospitalist service, physical therapy and occupational therapy also participated in this patients care. Post-op day 1: Patient felt well without CP, SOB, dizziness or nausea. patient was alert and in no acute distress. Dressing was clean, dry and intact. Operative extremity dorsiflexion and plantarflexion intact, sensation intact to light touch distally, DP2+. Prior to discharge: dressing was changed, incision was clean, dry and intact. Patient was deemed to be medically and orthopedically stable for discharge. Physical therapy goals were met. Home Medications Medication Instructions Recorded Confirmed Type Irbesartan 75 mg PO QAM 05/26/18 12/14/18 History Acetaminophen TAB* Tylenol TAB* 650 mg PO Q8HR PRN tab 12/15/18 Rx Apixaban* [Eliquis*] 2.5 mg PO BID #60 tab 12/15/18 Rx Docusate CAP* [Colace Cap*] 100 mg PO BID PRN #90 cap 12/15/18 Rx oxyCODONE/Acetamin 5/325 MG* 1 tab PO Q4H PRN tab MDD 10 12/15/18 Rx [Percocet 5/325 TAB*] oxyCODONE/Acetamin 5/325 MG* 2 tab PO Q4H PRN #70 tab MDD 10 12/15/18 Rx [Percocet 5/325 TAB*] Discharge Instructions following Orthopedic Surgery: Activity: * Weight Bearing as tolerated * Continue physical therapy and occupational therapy exercises as shown * Start Outpatient physical therapy Hip replacements: Continue Hip Precautions- do not cross legs or bend greater than 90 degrees/squat Wound care: * OK to shower on post-op day 3, no bathing, swimming, or submerging wound. * Use gentle soap, pat dry. Cover with gauze, KOMAL wrap or tape. Call Orthopedic office for: * Increased drainage * Redness * Increased pain * Fever Go to ER with shortness of breath or chest pain. Diet: * Regular diet * Increase fluids and fiber to prevent constipation. * Continue to use stool softeners, call office if no bowel motion within 48 hours. Medications See Home Medication List in your packet for medications that you should take after discharge. DVT Prophylaxis: Increases bleeding tendency Eliquis Dosin.5 mg, 1 tab every 12 hours x 30 days Pain Control: Percocet Dosin/325 mg 1-2 tabs by mouth every 4-6 hours as needed for pain. Maximum of 10 tabs per day. Hold for sedation, wean off as soon as pain allows Please note that Percocet contains Tylenol (acetaminophen). Maximum daily dose of Tylenol is 4000 mg from all sources. Antibiotics are required prior to any dental work. FOLLOW UP: Follow up with [Vincent] Within 10-14 days, call for appointment Please call our office with any questions or concerns ([phone]) [place] [facility] [place]
== END 2018-12-15 16:45 | disposition home or self-care (01) | DRG 301 ==
LOC: AA 08:17 → SSU 14:17
PROVIDERS: ADMIT Orthopaedic Surgery Adult Reconstructive Orthopaedic Surgery; ATTEND Orthopaedic Surgery Adult Reconstructive Orthopaedic Surgery
PROC: 0SR904A Replacement of Right Hip Joint with Ceramic on Polyethylene Synthetic Substitute, Uncemented, Open Approach (ICD-10-PCS; principal; 2018-12-14 11:00)
DX: M16.11 Unilateral primary osteoarthritis, right hip (principal); Z68.41 Body mass index [BMI] 40.0-44.9, adult; G47.33 Obstructive sleep apnea (adult) (pediatric); I10 Essential (primary) hypertension; I44.1 Atrioventricular block, second degree; I77.819 Aortic ectasia, unspecified site; E66.01 Morbid (severe) obesity due to excess calories; M54.31 Sciatica, right side; E78.5 Hyperlipidemia, unspecified; F32.9 Major depressive disorder, single episode, unspecified; Z98.1 Arthrodesis status; Z88.8 Allergy status to other drugs, medicaments and biological substances; Z28.21 Immunization not carried out because of patient refusal
CPT/HCPCS: 36415; 80048; 85014; 85018; 85049; 88304; 88311; A9270-GY; C1776; J0690; J1100; J2250; J2405; J2704; J2795; J3010; J3490

== ENCOUNTER 2020-09-21 15:46 | Inpatient (IN) ==
[2020-09-21 19:00] LABS: ABS Basophils 0.1 10^3/ul (0-0.2); ABS Eosinophils 0.1 10^3/ul (0-0.6); ABS Lymphocytes 1.2 10^3/ul (1.0-4.8); ABS Monocytes 0.9 10^3/ul (0-0.8); Hematocrit 37 % (42-52); Hemoglobin 12.3 g/dL (14.0-18.0); Lymphocyte % 12.1 %; Mean Corpuscular HGB Conc 33 g/dL (31-36); Mean Corpuscular Hemoglobin 28 pg (27-31); Mean Corpuscular Volume 85 fL (80-94); Platelet Count 231 10^3/uL (150-450); Red Blood Count 4.42 10^6 /uL (4.18-5.48); Red Cell Distribution Width 15 % (10-15); White Blood Count 10.3 10^3/uL (3.5-10.8)
[2020-09-21 19:13] LABS: Albumin 3.9 g/dL (3.2-5.2); Calcium 8.9 mg/dL (8.6-10.3); Potassium 4.9 mmol/L (3.5-5.0); Total Bilirubin 0.5 mg/dL (0.2-1.0)
[2020-09-21 19:19] LABS: Albumin/Globulin Ratio 1.2 (1-3); EGFR African American 96.8 (>60); Globulin 3.2 g/dL (2-4); Total Protein 7.1 g/dL (6.4-8.9); Troponin I 0.01 ng/mL (<0.03)
[2020-09-21 20:13] LABS: TSH Ultra Thyroid Stim Horm 4.58 mcIU/mL (0.34-5.60)
[2020-09-21] MEDS ORDERED: cefTRIAXone 2 GM ADDV.VIAL 2 GM in NS 0.9% 100 ml BAG 100 ML IVPB ONE (23:36)
[2020-09-22] MEDS ORDERED: Atropine 0.1 MG/ML 10 ml SYR (1 mg) IV PUSH PRN (01:07)
[2020-09-22 01:36] LABS: C Reactive Protein 25.83 mg/L (<8.01)
[2020-09-22 02:44] LABS: Erythrocyte Sed Rate 30 mm/Hr (0-19)
[2020-09-22 04:13] LABS: Influenza A Molecular Negative (Negative); Influenza B Molecular Negative (Negative)
[2020-09-22 04:20] LABS: Urine Appearance Clear; Urine Bilirubin Negative (Negative); Urine Blood Negative (Negative); Urine Color Yellow; Urine Glucose Negative (Negative); Urine Ketones Negative (Negative); Urine Nitrite Negative (Negative); Urine Protein Negative (Negative); Urine Specific Gravity 1.016 (1.002-1.030); Urine Urobilinogen Negative (Negative)
[2020-09-22 05:50] LABS: ABS Lymphocytes 0.9 10^3/ul (1.0-4.8); ABS Monocytes 0.6 10^3/ul (0-0.8); ABS Neutrophils 6.5 10^3/ul (1.5-7.7); Eosinophil % 0.6 %; Hematocrit 37 % (42-52); Hemoglobin 12.3 g/dL (14.0-18.0); Mean Corpuscular HGB Conc 33 g/dL (31-36); Mean Corpuscular Hemoglobin 28 pg (27-31); Mean Corpuscular Volume 84 fL (80-94); Mean Platelet Volume 9.5 fL (7.4-10.4); Nucleated Red Blood Cells % 0.1; Platelet Count 182 10^3/uL (150-450); Red Blood Count 4.39 10^6 /uL (4.18-5.48); Red Cell Distribution Width 15 % (10-15)
[2020-09-22 06:17] LABS: Calcium 8.4 mg/dL (8.6-10.3); EGFR African American 99.1 (>60); EGFR Non-African American 81.9 (>60); Magnesium 1.9 mg/dL (1.9-2.7); Phosphorus 3.6 mg/dL (2.5-5.0)
[2020-09-22 06:20] LABS: Troponin I 0.02 ng/mL (<0.03)
[2020-09-22] MEDS: Heparin 5000 UNITS/ML 1 mL VIAL SUBCUT SCH ×2 (09:48→21:20)
[2020-09-22] MEDS ORDERED: cefTRIAXone 1 gm/50 mL NS BAG 1 GM/50 ML BAG IVPB SCH (23:00)
[2020-09-23 05:32] LABS: ABS Eosinophils 0.1 10^3/ul (0-0.6); ABS Lymphocytes 1.2 10^3/ul (1.0-4.8); ABS Monocytes 0.5 10^3/ul (0-0.8); ABS Neutrophils 5.1 10^3/ul (1.5-7.7); Eosinophil % 1.7 %; Hematocrit 35 % (42-52); Hemoglobin 11.7 g/dL (14.0-18.0); Lymphocyte % 17.1 %; Mean Corpuscular HGB Conc 34 g/dL (31-36); Mean Corpuscular Hemoglobin 28 pg (27-31); Mean Corpuscular Volume 84 fL (80-94); Mean Platelet Volume 9.8 fL (7.4-10.4); Platelet Count 176 10^3/uL (150-450); Red Blood Count 4.15 10^6 /uL (4.18-5.48); Red Cell Distribution Width 14 % (10-15)
[2020-09-23 06:01] LABS: Calcium 8.4 mg/dL (8.6-10.3); EGFR African American 105.4 (>60); EGFR Non-African American 87.1 (>60); Phosphorus 3.6 mg/dL (2.5-5.0); Potassium 3.9 mmol/L (3.5-5.0)
[2020-09-23] MEDS: Heparin 5000 UNITS/ML 1 mL VIAL SUBCUT SCH (08:14)
[2020-09-23] MEDS: Enoxaparin 40 MG/0.4 ML SYR SUBCUT SCH (13:35)
[2020-09-24 08:09] LABS: ABS Basophils 0.1 10^3/ul (0-0.2); ABS Eosinophils 0.1 10^3/ul (0-0.6); ABS Lymphocytes 1.4 10^3/ul (1.0-4.8); ABS Monocytes 0.8 10^3/ul (0-0.8); ABS Neutrophils 4.7 10^3/ul (1.5-7.7); Eosinophil % 1.7 %; Hematocrit 36 % (42-52); Hemoglobin 12.1 g/dL (14.0-18.0); Lymphocyte % 19.5 %; Mean Corpuscular HGB Conc 33 g/dL (31-36); Mean Corpuscular Hemoglobin 28 pg (27-31); Mean Corpuscular Volume 84 fL (80-94); Mean Platelet Volume 8.7 fL (7.4-10.4); Platelet Count 239 10^3/uL (150-450); Red Blood Count 4.32 10^6 /uL (4.18-5.48); Red Cell Distribution Width 14 % (10-15)
[2020-09-24 08:26] LABS: Calcium 8.5 mg/dL (8.6-10.3); EGFR African American 113.9 (>60); EGFR Non-African American 94.1 (>60); Potassium 4.1 mmol/L (3.5-5.0)
[2020-09-24] MEDS: Enoxaparin 40 MG/0.4 ML SYR SUBCUT SCH (12:13)
[2020-09-24 18:03] LABS: IgG Immunoblot Positive (Negative); IgM Immunoblot Positive (Negative)
[2020-09-25 06:36] LABS: ABS Basophils 0.1 10^3/ul (0-0.2); ABS Eosinophils 0.1 10^3/ul (0-0.6); ABS Lymphocytes 1.7 10^3/ul (1.0-4.8); ABS Monocytes 0.7 10^3/ul (0-0.8); Hematocrit 36 % (42-52); Hemoglobin 12.2 g/dL (14.0-18.0); Lymphocyte % 25.5 %; Mean Corpuscular HGB Conc 34 g/dL (31-36); Mean Corpuscular Hemoglobin 28 pg (27-31); Mean Corpuscular Volume 82 fL (80-94); Mean Platelet Volume 8.9 fL (7.4-10.4); Platelet Count 241 10^3/uL (150-450); Red Blood Count 4.32 10^6 /uL (4.18-5.48); Red Cell Distribution Width 14 % (10-15); White Blood Count 6.5 10^3/uL (3.5-10.8)
[2020-09-25 06:55] LABS: Calcium 8.6 mg/dL (8.6-10.3); EGFR African American 123.8 (>60); EGFR Non-African American 102.3 (>60); Magnesium 1.9 mg/dL (1.9-2.7); Phosphorus 4.9 mg/dL (2.5-5.0); Potassium 4.2 mmol/L (3.5-5.0)
[2020-09-25] MEDS: Enoxaparin 40 MG/0.4 ML SYR SUBCUT SCH (12:18)
[2020-09-26] MEDS ORDERED: Magnesium Sulfate IV 1GM/100ML 1 GM/100 ML BAG IV ONE (07:27)
[2020-09-26] MEDS: Enoxaparin 40 MG/0.4 ML SYR SUBCUT SCH (15:48)
[2020-09-26 19:28] VITALS: BP 134/81
== END 2020-09-26 19:30 | disposition home or self-care (01) | DRG 724 ==
LOC: ED 15:46 → SUATTDRO 09-22 01:04 → ICU 09-22 01:04 → MEDTELE 09-22 15:14
PROVIDERS: ADMIT Student in an Organized Health Care Education/Training Program; ATTEND Internal Medicine